=== PATIENT | female | born 1965 | race Caucasian/White ===

== ENCOUNTER 2016-10-29 11:15 | Observation (INO) | payer OTHER ==
[~2016-10-29] VITALS: Ht 160 cm; Wt 72.0 kg
[~2016-10-29 11:15] MED LIST: BUPIVACAINE HCL PF 0.5% 30 ML VIAL ONE; GELFOAM SIZE 100 ONE; GENTAMICIN SULFATE 80 MG/2 ML VIAL ONE; HYDR-3533 PO; THROMBIN (TOPICAL) 5,000 UNIT VIAL ONE; ceFAZolin 2 GM PREMIX 50 ML ONE; methylPREDNISolone ACETATE 40 MG/ML VIAL ONE
[2016-10-29 11:53] VITALS: BP 147/91; PULSE 80; RESP 20; TEMP 98.1; O2SAT 100
[2016-10-29] MEDS ORDERED: SODIUM CHLOR 0.9% 250 ML INJ 250 ML ONE (12:09)
[2016-10-29] MEDS ORDERED: VANCOMYCIN HCL 1000 MG VIAL ONE (12:09)
[2016-10-29] MEDS ORDERED: fentaNYL CITRATE 250 MCG/5 ML AMP ONE (12:50)
[2016-10-29] MEDS ORDERED: MIDAZOLAM HCL 2 MG/2 ML VIAL ONE (12:50)
[2016-10-29] MEDS ORDERED: ACETAMINOPHEN 1000 MG/100 ML VIAL IV ONE (12:50)
[2016-10-29] MEDS ORDERED: HYDROmorphone HCL PF 2 MG/ML VIAL ONE (12:54)
[2016-10-29] MEDS ORDERED: VANCOMYCIN HCL 1000 MG ON-CALL/NS 250 ML IV SCH ×2 (13:00)
[2016-10-29] MEDS ORDERED: SODIUM CHLOR 0.9% 1000 ML INJ 1,000 ML IV SCH (13:00)
[2016-10-29] MEDS ORDERED: SODIUM CHLORID 0.9% 500 ML IV PRN (13:00)
[2016-10-29] MEDS ORDERED: INSULIN HUMAN REGULAR 1,000 UNITS/10 ML VIAL SQ PRN (13:00)
[2016-10-29] MEDS ORDERED: CHLORHEXIDINE GLUCONATE 2 % 1 PACK (2 CLOTHS) TOPICAL PRN (13:00)
[2016-10-29] MEDS ORDERED: METOPROLOL TARTRATE 25 MG TAB PO PRN (13:00)
[2016-10-29] MEDS ORDERED: POVIDONE IODINE 5% (ANTISEPSIS KIT) 4 APPLICATIONS EACH NARE PRN (13:00)
[2016-10-29] MEDS ORDERED: LACTATED RINGER'S 1000 ML IV PRN (13:00)
[2016-10-29] MEDS ORDERED: PROPOFOL 200 MG/20 ML AMP IV ONE (13:42)
[2016-10-29] MEDS ORDERED: ONDANSETRON HCL 4 MG/2 ML VIAL IV PUSH ONE (13:42)
[2016-10-29] MEDS ORDERED: SODIUM CHLORIDE 0.9% FLUSH 5 ML FLUSH IVF PRN (15:00)
[2016-10-29] MEDS ORDERED: ACETAMINOPHEN/HYDROcodone 325 MG/10 MG TAB PO PRN (15:00)
[2016-10-29] MEDS ORDERED: MORPHINE SULFATE 4 MG/ML INJ IV PUSH PRN (15:00)
[2016-10-29] MEDS ORDERED: ACETAMINOPHEN 325 MG TAB PO PRN (15:00)
[2016-10-29] MEDS ORDERED: DO NOT ADM ANY ANTICOAGULANT DRUGS PRN (15:03)
--- NOTE | 2016-10-29 15:05 | PD.OP ---
Operative Report Date of Surgery: Oct 29, 2016 Preoperative Diagnosis: L4-5 disk herniation Postoperative Diagnosis: L4-5 disk herniation Procedure: Left L4-5 hemilaminectomy and microdiscectomy Anesthesia: general Surgeon: José Manuel Rand [employer] Secretary(s): Jesica Hendricks Operation and Findings: INDICATIONS FOR THE SURGICAL PROCEDURE ms Wilkes is a 51 year-old female who presented with intractable mechanical back pain and clinical evidence of left L5 lower extremity radiculopathy. She was found to have a disk herniation causing significant stenosis with significant mass effect on the neural structures which correlated with the clinical symptoms. She failed maximum nonsurgical management including modalities of conservative treatment as well as pain management interventions by an interventional pain specialist. A surgical decompression were indicated as a last resort. The [id number] details of the procedure, indications, alternatives, risks and potential complications were fully discussed with the patient. The patient fully understood. All the questions were answered. No guarantees were given. The patient voiced requesting the procedure and signed informed consents. The patient was offered the alternative of delaying the procedure and continuing with nonsurgical management. DETAILS OF THE SURGICAL PROCEDURE After the induction of general anesthesia, endotracheal intubation was performed. A Goyal catheter, bilateral KAYLA hose and sequential compression devices were placed and kept throughout the procedure. The patient was positioned prone on a Joe table over a Khanh frame. All pressure points were carefully padded with eggcrate mattress. The eyes were tapped shut after ointment was applied by the anesthesiologist to prevent corneal abrasion. A Fredi hugger was placed over the exposed lower body to maintain control of the core body temperature. The lower lumbar region was prepped and draped in the usual sterile fashion. A spinal needle was placed for localization and an x- ray performed with a C-arm. A skin incision was made in the midline over the spinous processes L4-5 with a # 10 blade. Small subcutaneous bleeders were controlled with a bipolar and the dissection was carried out through the lumbar fascia exposing the spinous processes. A subperiosteal dissection was performed with a Nathan elevator and a Bovie over the left L4-L5 spinous process lamina and facets. A microdiscectomy self-retaining retractor was placed on the incision and an x-ray was obtained with an instrument placed underneath the lamina. At this point in the procedure the operating microscope was draped in the usual sterile fashion and brought to the field. The rest of the surgical procedure was performed using microsurgical dissection technique with exception of the closure. Once the level was confirmed, a left decompressive laminectomy was performed at L4-L5. using the TPS drill with an 4mm drill bit. A medial facetectomy was performed and the superior free border of the ligamentum flavum was dissected with a ligament dissector and removed with a thin footplate 2 mm Kerrison The medial facetectomy allowed me to expose the L5 nerve root, which was identified and followed towards its exit in the foramen. Epidural veins located laterally to the dural sac were coagulated with a bipolar and incised with microscissors. Gentle medial retraction of the dural sac allowed inspection of the disc space. The patient had a disc herniation, causing mass effect over the exiting nerve root. The annulus fibrosus of the disc was coagulated with the bipolar and incised with an 11 blade. The extruded disc was carefully dissected from the surrounding tissue and removed with pituitary forceps. Then, a microdiscectomy was carried out in the standard fashion using straight and up-biting pituitary forceps. A good decompression of the dural sac and nerve root was achieved. The exit of the nerve root was inspected for residual disc fragments and hemostasis was secured with the bipolar. The incision was irrigated with a large amount of saline solution. A Valsalva maneuver failed to show any cerebrospinal fluid leak or bleeding. The decompression was assessed again and found to be satisfactory. The incision was then closed in layers. The fascia was closed with 0 Vicryl sutures in an interrupted fashion. The superficial fascia was closed with 0 Vicryl sutures. The fascia was infiltrated with 0.5% Marcaine with epinephrine 1:100,000 dilution. The subcutaneous tissue was irrigated then closed with 0 Vicryl and 3 -0 Vicryl. The skin was closed with 4-0 running subcuticular Vicryl. Dermabond was applied to the skin. A sterile dressing was applied. At the end of the procedure, the sponge, needle and instrument counts were all correct. Estimated blood loss was less than 50 cc. No blood transfusion was given. No intraoperative complications occurred. The patient received prophylactic antibiotics. The patient was then extubated and transferred to the recovery room in stable condition. José Manuel Rand MD Oct 29, 2016 15:05
[2016-10-29] MEDS ORDERED: *MEPERIDINE 25 MG INJ VIAL PERIprocedural Use ONLY ONE (15:16)
[2016-10-29] MEDS ORDERED: *HYDROmorphone PF 1 MG VIAL PERIprocedural Use ONLY ONE ×3 (15:25→17:38)
[2016-10-29] MEDS: NS + KCL 20 MEQ INJ 1,000 ML IV SCH (15:36)
[2016-10-29] MEDS ORDERED: *diphenhydrAMINE HCL 50 MG/ML VIAL PERIprocedural Use ONLY ONE (15:38)
[2016-10-29] MEDS ORDERED: HYDROmorphone HCL PF 1 MG/ML VIAL IV PRN ×2 (17:00)
[2016-10-29] MEDS: MORPHINE SULFATE 4 MG/ML INJ IV PUSH PRN ×2 (17:05→20:51)
--- NOTE | 2016-10-29 20:07 | EKG ---
Date Performed: 10/29/2016 Time Performed: 11:36:06 PTAGE: 51 years EKG: Sinus rhythm NORMAL ECG PREVIOUS TRACING : 02/12/2004 04.25 Compared to prior tracing no significant change DOCTOR: Ant Oneill Interpretating Date/Time 10/29/2016 20:06:24
[2016-10-29 20:11] VITALS: BP 147/76; PULSE 80; RESP 20; TEMP 97.5; O2SAT 99
[2016-10-29] MEDS: ceFAZolin 2 GM PREMIX 50 ML IV SCH (20:49)
[2016-10-29] MEDS: DOCUSATE SODIUM 100 MG CAP PO SCH (20:49)
[2016-10-29] MEDS: SODIUM CHLORIDE 0.9% FLUSH 5 ML FLUSH IVF SCH (20:49)
[2016-10-29] MEDS: ACETAMINOPHEN/HYDROcodone 325 MG/10 MG TAB PO PRN (22:25)
[2016-10-30] VITALS: BP 123/71; PULSE 92; RESP 20; TEMP 97.7; O2SAT 94
[2016-10-30] MEDS: NS + KCL 20 MEQ INJ 1,000 ML IV SCH (01:00)
[2016-10-30] MEDS: ACETAMINOPHEN/HYDROcodone 325 MG/10 MG TAB PO PRN ×3 (01:37→11:38)
[2016-10-30 04:00] VITALS: BP 109/64; PULSE 82; RESP 20; TEMP 97.9; O2SAT 94
[2016-10-30] MEDS: ceFAZolin 2 GM PREMIX 50 ML IV SCH (05:34)
[2016-10-30 08:03] VITALS: BP 122/73; PULSE 71; RESP 20; TEMP 98.1; O2SAT 97
[2016-10-30] MEDS: MORPHINE SULFATE 4 MG/ML INJ IV PUSH PRN (08:26)
[2016-10-30] MEDS: DOCUSATE SODIUM 100 MG CAP PO SCH (08:26)
[2016-10-30] MEDS: SODIUM CHLORIDE 0.9% FLUSH 5 ML FLUSH IVF SCH (08:27)
[2016-10-30] MEDS ORDERED: PANTOPRAZOLE SOD 40 MG DELAYED RELEASE TAB PO SCH (09:00)
[2016-10-30] MEDS ORDERED: HYDR-3583 PO (09:03)
--- NOTE | 2016-10-30 09:56 | HHI.DCPOC ---
Discharge Care Plan Diagnosis: (1) S/P lumbar laminectomy Goals to Promote Your Health * To prevent worsening of your condition and complications * To maintain your health at the optimal level Directions to Meet Your Goals Take your medications as prescribed Follow your dietary instruction Follow activity as directed Keep your appointments as scheduled Take your immunizations and boosters as scheduled If your symptoms worsen call your PCP, if no PCP go to Urgent Care Center or Emergency Room Smoking is Dangerous to Your Health. Avoid second hand smoke Call the 24-hour hour crisis hotline for domestic abuse at Leigh Garcias Oct 30, 2016 09:56
--- NOTE | 2016-10-30 09:56 | HHI.DS ---
Discharge Summary Admission Date Oct 29, 2016 at 19:52 Discharge Date: Oct 30, 2016 Admitting Diagnosis s/p lumbar laminectomy, microdiscectomy (1) S/P lumbar laminectomy ICD Code: Z98.890 Brief History Ms Wilkes is a 51 year-old female who presented with intractable mechanical back pain and clinical evidence of left L5 lower extremity radiculopathy. She was found to have a disk herniation causing significant stenosis with significant mass effect on the neural structures which correlated with the clinical symptoms. She failed maximum nonsurgical management including modalities of conservative treatment as well as pain management interventions by an interventional pain specialist. A surgical decompression were indicated as a last resort. Imaging Last Impressions Lumbar Spine X-Ray 10/29/16 0000 Signed Impressions: Service Date/Time: Saturday, October 29, 2016 13:33 - CONCLUSION: Intraoperative changes as above. Nikunj Rivera MD Hospital Course Ms. Wilkes underwent a left L4-5 hemilaminectomy and microdiscectomy on Oct 29, 2016. Her surgery went well without complications. She was discharged home in stable conditions. Wound care and activity restrictions were discussed. Pt Condition on Discharge: Stable Discharge Disposition: Discharge Home Discharge Instructions DIET: Follow Instructions for: Heart Healthy Diet ACTIVITIES You can perform: Weight Bearing As Anika ADDITIONAL Activity Instructio: Avoid strenuous activities, heavy lifting, overhead activities, repetitive bending, twisting, pushing, pulling or any activities which might result in stress over the spine. Avoid situtation that will put at risk for falls. Use assistive device as needed for walking. Wear lumbar brace when out of bed. New Medications: Hydrocodone-Acetaminophen (Hydrocodone-Acetaminophen) 10-325 mg Tab 1 TAB PO Q4H PRN PAIN SCALE 1 TO 10 #90 Ref 0 TAB Leigh Garcias Oct 30, 2016 09:56
--- NOTE | 2016-10-31 09:21 | RADRPT ---
EXAM DATE/TIME: 10/29/2016 13:33 [facility] COMPARISON: No previous studies available for comparison. INDICATIONS : Level Localization L4,L5 laminectomy. MEDICAL HISTORY : None. SURGICAL HISTORY : None. ENCOUNTER: Initial ACUITY: 1 day PAIN SCORE: Non-responsive. LOCATION: Lumbar spine. FINDINGS: Intraoperative examination demonstrates a localizing probe pointing towards L4-5. CONCLUSION: Intraoperative changes as above. Nikunj Rivera MD on October 31, 2016 at 9:19 Board Certified Radiologist. This report was verified electronically.
== END 2016-10-30 12:23 | disposition home or self-care (01) ==
LOC: HSDC 11:15 → N05B 19:52
PROVIDERS: ADMIT Neurological Surgery; ATTEND Neurological Surgery
PROC: 01NB0ZZ Release Lumbar Nerve, Open Approach (ICD-10-PCS; 2016-10-29)
PROC: 0SB20ZZ Excision of Lumbar Vertebral Disc, Open Approach (ICD-10-PCS; principal; 2016-10-29 12:55)
DX: M51.16 Intervertebral disc disorders with radiculopathy, lumbar region (principal)
CPT/HCPCS: 00630; 63030; 72020; 76000; 93005; 94150; 97162; G0378; G8987; G8988; J0131; J0690; J1030; J1170; J1200; J1580; J2175; J2250; J2270; J2405; J3010; J3370; J3480; J7050; L0627